=== PATIENT | male | born 1990 | race Two or more races ===

== ENCOUNTER → 2024-07-17 | Outpatient (CLI) | payer OTHER | LOC: M RAD 16:13 | DX: R93.89 Abnormal findings on diagnostic imaging of other specified body structures (principal); R91.1 Solitary pulmonary nodule ==

== ENCOUNTER → 2024-12-05 | Outpatient (CLI) | payer OTHER | LOC: M RAD 15:03 | DX: R93.89 Abnormal findings on diagnostic imaging of other specified body structures (principal) ==